=== PATIENT | male | born 1990 | race Two or more races ===

== ENCOUNTER 2023-06-06 06:10 | Inpatient (IN) | payer BC, SELFPAY ==
--- NOTE | 2023-05-11 09:25 | CM ---
Patient is scheduled for cervical spine surgery on 06/06/23. Spoke with patient prior to surgery via telephone. Introduced role of the Orthopedic Navigator. Patient reports that he currently lives alone but is moving in with his significant other.
Her home is a two story home. There is one step to enter and a flight of steps to the second floor. There is a powder room on the first floor. He currently functions independently. He has a cervical collar. He has never had VN services.
Discussed orthopedic program, post surgical plans and tentative plan for patient to return home when directed by surgeon. Patient is in agreement with tentative plan and will have support from his significant other when he goes home.
Plan: Orthopedic Navigator will remain available to assist with the care of patient and will reassess discharge needs after surgery.
--- NOTE | 2023-05-19 11:32 | HPS.HSE ---
Family Physician
-
Family Physician: INTERVIEWE UNKNOWN - PT NOT
Chief Complaint
-
Cervical stenosis.
History of Present Illness
The patient is a 32 year old male presenting today for cervical stenosis. The patient reports significant neck pressure which radiates to his head as well as left hand discomfort secondary to this diagnosis. He notes that his current
symptoms greatly interfere with his activities of daily living and are overall impacting his quality of life. He had tried and failed multiple conservative treatment measures in the past for his symptoms. These conservative treatment measures
include activity modification, self-therapeutic exercises, medical management with Tylenol and NSAIDs, and the application of ice and/or heat. Recent MRI findings of the cervical spine revealed a disc herniation causing right sided stenosis at
C4-C5, C5-C6, and C6-C7. He was determined to be in need of a C5-C6, C6-C7 anterior cervical discectomy and fusion. He denies any current complaints today such as chest pain, shortness of breath, nausea, vomiting, diarrhea, lightheadedness,
dizziness, cough, sore throat, or fever.
Medical History
Past Medical History
Past Medical History: Reports Other
Additional Past Medical History:
1. Cervical stenosis.
2. Degenerative disc disease.
3. White coat syndrome without diagnosis of hypertension.
4. Migraines.
5. History of tobacco abuse.
Past Surgical History: Reports Other
Additional Past Surgical History:
1. [place] teeth extraction
Social History
Tobacco: Former Smoker (He is a former 1/2 pack per day cigarette smoker who quit tobacco products altogether 'several months ago.')
Alcohol: None
Living: Other (He lives with his fianc� and extended family in a 2 story home. )
Family History
Family History: Not pertinent
Allergies / Home Medications
Allergy/Medication List:
Home medications: Naproxen 220 mg p.o. twice a day as needed.
Allergies: Artificial grape seasoning.
Review of Systems
-
A 12 point ROS was completed and negative except as noted: Yes
Physical Exam
Vital Signs
Blood pressure 127/86. Heart rate 82. Respirations 18. Pulse ox 98%.
Height 5 feet, 8 inches. Weight 83.1 kg. BMI 27.9.
Physical Exam
General: Well Developed, Well Nourished and No Apparent Distress
HEENT: NormoCephalic, Moist mucous membranes, Atraumatic and PERRLA
Respiratory: Clear
Cardiac: Regular Rhythm
GI: Soft, Non Tender and Non Distended
Musculoskeletal: Other (He has significant weakness with elbow flexion. Elbow extension is 3+ out of 5. Positive Spurling sign on the left. No wide based gait. )
Skin: Warm and Dry
Neuro: AO x 3 and Nonfocal/grossly intact
Laboratory Results
-
DIAGNOSTIC STUDIES as of 05/19/2023: White blood cell count 9.3. Hemoglobin 14.8. Platelet count 352,000. Sodium 137. Potassium 4.6. BUN 13. Creatinine 0.9. Glucose 73. Calcium 9.3. AST 29. ALT 30. Albumin 4.3. MRSA screen negative.
Impression/Plan
-
CLEARANCES: Primary medical and dental waived. The patient has stable comorbidities and is medically optimized to proceed to the OR on 06/06/2023.
IMPRESSION/PLAN:
1. Cervical stenosis: The patient is in need of a C5-C6, C6-C7 anterior cervical discectomy and fusion with Dr. Kelechi Varghese on 06/06/2023. The benefits and risks of the procedure have been explained to the patient. The patient understands these risks
and wishes to proceed.
2. DVT prophylaxis: Bilateral venous compression devices and KRISTEL hose stockings. We will promote frequent and early ambulation as tolerated during admission.
[2023-05-19 12:07] VITALS: BMI 27.9
[2023-05-19 13:31] LABS: Hematocrit 41.9 % (39.0-52.0); Hemoglobin 14.8 g/dL (13.0-18.0); Mean Corp Hgb Conc. 35.3 g/dL (33.0-37.0); Mean Corpuscular Hgb 29.5 pg (27.0-31.0); Mean Corpuscular Volume 83.5 fL (80.0-94.0); Mean Platelet Volume 9.4 fL (7.4-10.4); Platelet Count 352 10^3/uL (130-400); Red Blood Cell Count 5.02 10^6/uL (4.70-6.10); Red Cell Dist. Width 12.3 % (11.5-14.5); White Blood Cell Count 9.3 10^3/uL (4.8-10.8)
[2023-05-19 14:05] VITALS: BMI 27.9
[2023-05-19 14:31] LABS: ALT (SGPT) 30 U/L (0-50); AST (SGOT) 29 U/L (17-59); Albumin 4.3 g/dl (3.5-5.0); Alkaline Phosphatase 79 U/L (38-126); Blood Urea Nitrogen 13 mg/dl (9-20); Calcium 9.3 mg/dl (8.4-10.2); Carbon Dioxide 28 mmol/L (22-30); Chloride 104 mmol/L (98-107); Estimated Creatinine Clearance 114 ml/min; Glucose 73 mg/dl (70-99); Potassium 4.6 mmol/L (3.5-5.1); Sodium 137 mmol/L (135-145); Total Bilirubin 0.4 mg/dl (0.2-1.3); Total Protein 6.8 g/dl (6.3-8.2); eGFR > 60.00
[2023-06-06] VITALS (26 sets, daily range): BP systolic 127–173; BP diastolic 78–146; PULSE 107; O2SAT 95; BMI 27.9
[2023-06-06] MEDS: SKELAXIN 800 MG PO (06:19)
[2023-06-06] MEDS: CELEBREX 200 MG PO (06:20)
[2023-06-06] MEDS: TYLENOL 1000 MG PO ×3 (06:20→17:09)
[2023-06-06] MEDS: LYRICA 150 MG PO (06:20)
[2023-06-06] MEDS: NORMOSOL-R 1000 IV ×3 (07:10→17:16)
[2023-06-06] MEDS: DILAUDID 0.5 MG IV ×2 (09:58→10:16)
[2023-06-06] MEDS: DILAUDID 0.25 MG IV (10:38)
[2023-06-06] MEDS: APRESOLINE 5 MG IV (10:56)
--- NOTE | 2023-06-06 12:12 | W.PN.UPDATE ---
Update Note
Progress Note Update
Cervical stenosis s/p C5-C6, C6-C7 ACDF w/ Dr Varghese 06/06/23
DVT prophylaxis - b/l SCDs/TEDs
White coat syndrome without diagnosis of hypertension - monitor BP
- Elevated post-op, likely in setting of pain - ensure adequate pain control
Degenerative disc disease
Migraines
History of tobacco abuse
[2023-06-06] MEDS: SENOKOT 17.1999999999999993 MG PO ×2 (12:36→19:40)
[2023-06-06] MEDS: ULTRAM 50 MG PO ×2 (12:37→17:09)
[2023-06-06] MEDS: COLACE 100 MG PO ×2 (12:37→19:40)
[2023-06-06] MEDS: ANCEF 5 IV (17:09)
[2023-06-06] MEDS: LYRICA 75 MG PO (17:10)
[2023-06-07] MEDS: TYLENOL 1000 MG PO ×3 (00:05→12:05)
[2023-06-07] MEDS: ULTRAM 50 MG PO ×3 (00:05→12:05)
[2023-06-07] MEDS: ANCEF 5 IV (00:05)
[2023-06-07] MEDS: FLUSH (NSS) 1 FLUSH IV (00:06)
[2023-06-07 03:00] VITALS: BP 136/74
[2023-06-07] MEDS: NORMOSOL-R 1000 IV (03:00)
--- NOTE | 2023-06-07 04:59 | DOWNTIME ---
There was a [employer] Senior [employer] Specialist Downtime on 06/07/2023 from 0100 to 06/07/2023 at 0439. Downtime documentation of patient's care, including medication administrations, has been reconciled in the electronic record per guidelines. Refer to the
patient's paper chart under the miscellaneous tab to see printed paper medication records and downtime forms.
[2023-06-07 05:40] LABS: Hematocrit 38.9 % (39.0-52.0); Hemoglobin 13.4 g/dL (13.0-18.0)
[2023-06-07] MEDS: LYRICA 75 MG PO (05:41)
[2023-06-07 06:09] LABS: Blood Urea Nitrogen 12 mg/dl (9-20); Calcium 8.9 mg/dl (8.4-10.2); Carbon Dioxide 26 mmol/L (22-30); Chloride 106 mmol/L (98-107); Estimated Creatinine Clearance > 125 ml/min; Glucose 100 mg/dl (70-99); Potassium 4.2 mmol/L (3.5-5.1); Sodium 136 mmol/L (135-145); eGFR > 60.00
[2023-06-07 07:40] VITALS: BP 136/89
[2023-06-07] MEDS: COLACE 100 MG PO (08:01)
[2023-06-07] MEDS: SENOKOT 17.1999999999999993 MG PO (08:01)
[2023-06-07 08:17] VITALS: BP 153/99; PULSE 88; O2SAT 96
--- NOTE | 2023-06-07 08:21 | CM ---
Addendum entered by Lily Rueda 06/07/23 09:48:
Patient did well in therapy; no discharge planning needs identified.
Original Note:
Reviewed chart and held rounds with PT, OT and RN. Patient had planned cervical spine surgery with Dr. Varghese on 06/05. Met with patient at bedside. Confirmed information previously obtained for assessment and discussed discharge plans. Patient
continues to plan to return home at discharge. He will have support from his significant other when he goes home. Reviewed that he will work with PT/OT this morning and that discharge needs will depend on his functional status. However, no needs
currently identified.
Patient has a cervical collar but no other DME.
Patient will use [facility] pharmacy for discharge prescriptions.
[2023-06-07 08:29] VITALS: BP 138/88
--- NOTE | 2023-06-07 09:39 | W.PN.ORTHO ---
Today's Communication / Plan
-
D/c today since clinically stable.
Assessment
.
Distal Motor Intact: Yes
Dressing:
Clean, dry and intact.
Assessment:
Cervical stenosis s/p C5-C6, C6-C7 ACDF w/ Dr Varghese 06/06/23
DVT prophylaxis - b/l SCDs/TEDs
White coat syndrome without diagnosis of hypertension - elevated post-op, likely in setting of pain - improving w/ adequate pain control and reassurance
Degenerative disc disease
Migraines
History of tobacco abuse
Plan
.
Surgery / Date: C5-C6, C6-C7 ACDF w/ Dr Varghese 06/06/23
DVT Prophylaxis: Other (b/l SCDs/TEDs)
Activity:
Out of bed.
PT/OT
Discharge Plan: Home
Subjective
.
.:
Patient resting comfortably in his chair this morning.
Did well w/ both PT and OT. AM labs stable.
Neck pain well controlled w/ current pain meds.
Mild sore throat and dysphagia but overall no significant complaints.
Eager for potential d/c today.
Vital Signs and Labs
.
Vital Signs and Labs:
Lab Results
06/07/23 05:14
06/07/23 05:14
Temp Pulse Resp BP Pulse Ox
98.1 F 83 17 136/89 97
06/07/23 07:40 06/07/23 07:40 06/07/23 07:40 06/07/23 07:40 06/07/23 07:40
Physical Exam
-
HEENT: No pallor, cyanosis, or jaundice. Throat clear.
NECK: Supple. + Cervical collar.
RESPIRATORY: Lungs clear to auscultation.
CVS: S1, S2 normal. RRR.
ABDOMEN: Soft, non-tender. No distension.
EXTREMITIES: Strength equal, no calf pain with palpation/dorsiflexion. Calves soft.
ACTIVE DIRECTORY SYSTEMS ADMINISTRATOR: AOx3. No focal deficits. farmworker general grossly intact
--- NOTE | 2023-06-07 09:48 | W.DS.TRANS ---
DC Summary - Housekeeping Aid
-
Discharge Instructions:
Sleep Apnea Risk Low
Discharge Diagnosis/Procedures Cervical stenosis s/p C5-C6, C6-C7 ACDF w/ Dr
Varghese 06/06/23
Diet Regular
Activity As tolerated
Additional Activity No heavy lifting >10 lbs
Driving Restrictions Not until seen by your Dr
Bathing Restrictions OK to shower in 4 days
Instructions:
Stand-Alone Forms: Varghese Cervical D/C Inst.
Changes to Home Medications: Yes
Discharge Medications:
DC Medications w/original date entered in [employer]
Saccharomyces boulardii 250 mg capsule (Florastor) 250 mg PO BID #10 caps 06/07/23
acetaminophen 500 mg tablet (Tylenol Extra Strength) 1,000 mg (2 x 500 mg) PO Q6H #30 tabs 06/07/23
cephalexin 500 mg capsule 500 mg PO QID #20 caps 06/07/23
docusate sodium 100 mg capsule 100 mg PO BID #30 caps 06/07/23
oxycodone 5 mg tablet 5 - 10 mg (1 - 2 x 5 mg) PO Q6H PRN moderate-severe pain #30 tabs 06/07/23
pregabalin 75 mg capsule (Lyrica) 75 mg PO BID #15 caps 06/07/23
sennosides 8.6 mg tablet (Senna Laxative) 17.2 mg (2 x 8.6 mg) PO BID #30 tabs 06/07/23
Home Medication Changes
Saccharomyces boulardii 250 mg capsule (Florastor) 250 mg PO BID #10 caps 06/07/23
acetaminophen 500 mg tablet (Tylenol Extra Strength) 1,000 mg (2 x 500 mg) PO Q6H #30 tabs 06/07/23
cephalexin 500 mg capsule 500 mg PO QID #20 caps 06/07/23
docusate sodium 100 mg capsule 100 mg PO BID #30 caps 06/07/23
oxycodone 5 mg tablet 5 - 10 mg (1 - 2 x 5 mg) PO Q6H PRN moderate-severe pain #30 tabs 06/07/23
pregabalin 75 mg capsule (Lyrica) 75 mg PO BID #15 caps 06/07/23
sennosides 8.6 mg tablet (Senna Laxative) 17.2 mg (2 x 8.6 mg) PO BID #30 tabs 06/07/23
Pending Results: No
[2023-06-07 11:30] VITALS: BP 134/77
[2023-06-07] MEDS: FLUZONE QUAD 2023-2024 SYRINGE 0.5 ML IM (13:53)
[2023-06-07 14:05] VITALS: BP 125/64
== END 2023-06-07 14:16 | disposition home or self-care (01) | DRG 473 ==
LOC: 2 SOUTH 06:10
PROVIDERS: Physician Assistant; ADMITTING PHYSICIAN Orthopaedic Surgery Orthopaedic Surgery of the Spine
PROC: 0RG20A0 Fusion of 2 or more Cervical Vertebral Joints with Interbody Fusion Device, Anterior Approach, Anterior Column, Open Approach (ICD-10-PCS; 2023-06-06)
DX: M48.02 Spinal stenosis, cervical region (principal); M50.222 Other cervical disc displacement at C5-C6 level; M50.223 Other cervical disc displacement at C6-C7 level; G43.909 Migraine, unspecified, not intractable, without status migrainosus; Z87.891 Personal history of nicotine dependence
CPT/HCPCS: 36415; 72020; 80048; 80053; 85014; 85018; 85027; 87070; 90686; 97116; 97162; 97166; C1713; G0008